=== PATIENT | female | born 1960 | race Native Hawaiian/Other Pacific Islander ===

== ENCOUNTER 2024-03-01 19:35 | Emergency (ER) | payer MEDICAID ==
[2024-03-01 19:52] VITALS: BP 160/76; O2SAT 99
--- NOTE | 2024-03-01 20:02 | ED Physician Documentation ---
PD HPI SKIN - Stated complaint Stated Complaint: LT ANKLE PX - Chief complaint Chief Complaint: Wound - History obtained from History obtained from: Patient - Additional information Additional information: 63-year-old female presents by private vehicle from home for evaluation of possible insect bite/infection to her left ankle. Patient states that 6 days ago she felt like she was stung by an unknown object or insect. She took Benadryl because she is allergic to bees/wasps, and has been elevating her leg. Patient states that yesterday [place] [employer] and both of her ankles are swollen today, but her left is more swollen than the right. She states that she continues to have an itching and irritated sensation. She states that she is concerned that she may have some sort of flesh eating bacteria or other infection because of the sting. Denies fevers, drainage, redness, other complaints at this time Review of Systems Constitutional: denies: Fever, Chills Musculoskeletal: reports: Joint swelling. denies: Neck pain, Back pain, Extremity pain, Joint pain, Extremity swelling PD PAST MEDICAL HISTORY - Past Medical History Past Medical History: No Cardiovascular: None Respiratory: None Neuro: None Endocrine/Autoimmune: None GI: None SIGNAL SUPERVISOR: None : None HEENT: None Psych: None Musculoskeletal: None Derm: None - Past Surgical History Past Surgical History: Yes General: Cholecystectomy - Present Medications Home Medications: Ambulatory Orders Medication Instructions Recorded Confirmed No Known Home Medications 03/01/24 03/01/24 - Allergies Allergies/Adverse Reactions: Allergies Allergy/AdvReac Type Severity Reaction Status Date / Time ibuprofen Allergy Hives Verified 03/01/24 19:38 morphine Allergy Anxiety Verified 03/01/24 19:39 - Social History Does the pt smoke?: No Smoking Status: Never smoker Does the pt drink ETOH?: No Does the pt have substance abuse?: No - Immunizations Immunizations are current?: Yes PD ED PE NORMAL - Vitals Vital signs reviewed: Yes - General General: Alert and oriented X 3, No acute distress, Well developed/nourished - Respiratory Respiratory: No respiratory distress - Derm Derm: Normal color, Warm and dry, No rash, Other (no erythema, no excessive warmth, no fluctuance) - Extremities Extremities: No deformity, No tenderness to palpate, Normal ROM s pain, Other (isolated L lateral malleolar swelling, no tenderness) - Neuro Neuro: Alert and oriented X 3, casing in line feeder 2-12 intact, No motor deficit, Normal speech Results - Vitals Vitals: Vital Signs - 24 hr 03/01/24 19:39 Temperature 36.8 C Heart Rate 87 Respiratory 16 Rate Blood Pressure 160/76 H O2 Saturation 99 Oxygen O2 Source Room air PD Medical Decision Making - ED course Complexity details: re-evaluated patient, considered differential, d/w patient ED course: 6 days of irritation with 1 day of worsening swelling of left lateral ankle. Exam is reassuring, patient has no tenderness to palpation, there is no fluctuance, excessive warmth, or induration to suggest underlying infection. Patient states that her main concern is an infection or flesh eating bacteria because her friend had a very severe infection in her buttocks in the past that required prolonged healing and wound care. This is likely an isolated allergic reaction, however there is absolutely no signs or symptoms to indicate an acute bacterial infection, much less a flesh eating bacterial infection. Patient counseled to continue to elevate her limb, apply warm compresses several times per day as needed for comfort, and to apply Benadryl cream as needed for itching and irritation. Monty wrap bandage applied in ED. Departure - Departure Disposition: 01 Home, Self Care Clinical Impression: Stings, insect Condition: Stable Instructions: ED Bite Insect Comments: Your ankle exam is reassuring. I do not know the cause of your swelling, but I can say confidently that at this time it does not appear to be a dangerous bacteria or infection. Apply Benadryl cream and warm compresses to your foot several times per day. Continue to elevate your limb for swelling. Wear the Monty wrap bandage as needed for comfort. Forms: PCP List
== END 2024-03-01 20:17 | disposition home or self-care (01) ==
LOC: ED 19:35
DX: S90.562A Insect bite (nonvenomous), left ankle, initial encounter (principal)
CPT/HCPCS: 99282; 99283